=== PATIENT | female | born 1990 | race Caucasian/White ===

== ENCOUNTER → 2022-10-15 | Outpatient (REF) | payer MEDICARE | LOC: M SFHCWAGY 17:04 | PROVIDERS: ATTEND Specialist | DX: Z34.83 Encounter for supervision of other normal pregnancy, third trimester (principal) ==

== ENCOUNTER 2022-10-23 11:00 | Outpatient (CLI) | payer MEDICARE ==
[~2022-10-23] VITALS: Ht 162.6 cm; Wt 92.2 kg
[2022-10-23] MEDS ORDERED: PRENTAB9 PO (11:28)
[2022-10-23] MEDS ORDERED: TUMS500C PO (11:29)
[2022-10-23] MEDS ORDERED: BUPR-69 PO (11:30)
[2022-10-23] MEDS ORDERED: HOME MED LIST COMPLETE! XX SCH (11:30)
[2022-10-23 11:31] VITALS: BP 144/91
[2022-10-23 12:05] VITALS: BP 137/72
[2022-10-23 12:34] LABS: HEMATOCRIT 37.7 % (36.0-47.0); HEMOGLOBIN 12.6 g/dl (12.0-15.5); MEAN CORPUSCULAR HEMOGLOBIN 29.4 pg (27.0-33.0); MEAN CORPUSCULAR HGB CONC 33.4 g/dl (32.0-36.5); MEAN CORPUSCULAR VOLUME 88.1 fl (80.0-96.0); PLATELET COUNT, AUTOMATED 264 10^3/uL (150-450); RED BLOOD COUNT 4.28 10^6/uL (4.00-5.40); WHITE BLOOD COUNT 15.1 10^3/uL (4.0-10.0)
[2022-10-23 12:35] VITALS: BP 147/88
[2022-10-23 12:58] LABS: TOTAL PROTEIN,RANDOM URINE 19.4 MG/DL (0.0-14.0)
[2022-10-23 13:03] LABS: CREATININE,RANDOM URINE 156.9 MG/DL
[2022-10-23 13:05] VITALS: BP 156/105
[2022-10-23 13:05] LABS: BLOOD UREA NITROGEN 11 MG/DL (9-23); CALCIUM LEVEL 9.8 MG/DL (8.5-10.1); CARBON DIOXIDE LEVEL 22 MMOL/L (20-31); CHLORIDE LEVEL 106 MMOL/L (98-107); CREATININE FOR GFR 0.64 MG/DL (0.55-1.30); GLOMERULAR FILTRATION RATE > 60.0 (>60); GLUCOSE, FASTING 82 MG/DL (60-100); POTASSIUM SERUM 4.2 MMOL/L (3.5-5.1); SODIUM LEVEL 137 MMOL/L (136-145)
[2022-10-23 13:14] LABS: HEMOGLOBIN A1c 5.4 % (4.0-6.0)
[2022-10-23 13:35] VITALS: BP 132/78
[2022-11-02] MEDS ORDERED: ZYRT10TA12 PO (16:50)
[2022-11-02] MEDS ORDERED: BUPR150T12 PO (16:50)
[2022-11-05] MEDS ORDERED: ACET-683 PO (08:12)
[2022-11-05] MEDS ORDERED: IBUP80TA PO (08:12)
== END 2022-10-23 14:14 | disposition home or self-care (01) ==
LOC: M LDO 11:00
PROVIDERS: ATTEND Obstetrics & Gynecology
DX: O16.9 Unspecified maternal hypertension, unspecified trimester (principal); O34.211 Maternal care for low transverse scar from previous cesarean delivery; Z3A.00 Weeks of gestation of pregnancy not specified
CPT/HCPCS: 36415; 59025; 80048; 82570; 83036; 84156; 85027; G0463

== ENCOUNTER → 2022-12-19 | Outpatient (CLI) | payer BC ==
[~2022-12-19] MED LIST: ACET-683 PO; BUPR-69 PO; BUPR150T12 PO; IBUP80TA PO; PRENTAB9 PO; TUMS500C PO; ZYRT10TA12 PO
[2022-12-19 15:21] LABS: HEMATOCRIT 47.5 % (36.0-47.0); HEMOGLOBIN 15.2 g/dl (12.0-15.5); MEAN CORPUSCULAR HEMOGLOBIN 28.6 pg (27.0-33.0); MEAN CORPUSCULAR VOLUME 89.3 fl (80.0-96.0); PLATELET COUNT, AUTOMATED 291 10^3/uL (150-450); RED BLOOD COUNT 5.32 10^6/uL (4.00-5.40); WHITE BLOOD COUNT 7.5 10^3/uL (4.0-10.0)
[2022-12-19 16:28] LABS: THYROID STIMULATING HORMONE 1.557 uIU/ML (0.55-4.78)
[2022-12-19 17:42] LABS: ALBUMIN 4.2 G/DL (3.2-5.2); ALKALINE PHOSPHATASE 106 U/L (46-116); ALT/SGPT 27 U/L (7.0-40); AST/SGOT 11 U/L (<34); BILIRUBIN,TOTAL 0.4 MG/DL (0.3-1.2); BLOOD UREA NITROGEN 17 MG/DL (9-23); CALCIUM LEVEL 9.7 MG/DL (8.5-10.1); CARBON DIOXIDE LEVEL 26 MMOL/L (20-31); CHLORIDE LEVEL 108 MMOL/L (98-107); CREATININE FOR GFR 0.87 MG/DL (0.55-1.30); GLOMERULAR FILTRATION RATE > 60.0 (>60); GLUCOSE, FASTING 91 MG/DL (60-100); POTASSIUM SERUM 4.3 MMOL/L (3.5-5.1); SODIUM LEVEL 140 MMOL/L (136-145); TOTAL PROTEIN 7.4 G/DL (5.7-8.2)
== END ==
LOC: M PLALAB 09:49
PROVIDERS: ATTEND Obstetrics & Gynecology
DX: R53.83 Other fatigue (principal)